=== PATIENT | female | born 1955 | race Caucasian/White ===

== ENCOUNTER 2023-10-17 19:00 | Emergency (ER) | payer BC, OTHER ==
[~2023-10-17] VITALS: Ht 170.2 cm; Wt 53.5 kg
[2023-10-17 19:28] VITALS: BP_SYST 137; PULSE 100; RESP 20; TEMP 98.3; O2SAT 99
[2023-10-17 20:39] LABS: BASOPHILS % (AUTO) 0.2 % (0.0-2.0); EOSINOPHILS # (AUTO) 0.1 K/uL (0.0-0.4); EOSINOPHILS % (AUTO) 0.7 % (0.0-4.0); HEMATOCRIT 43.5 % (36-48); HEMOGLOBIN 14.9 g/dL (12.0-16.0); LYMPHOCYTES # (AUTO) 1.3 K/uL (1.0-5.5); LYMPHOCYTES % (AUTO) 6.4 % (20.5-51.5); MEAN CORPUSCULAR HEMOGLOBIN 33 pg (27-31); MEAN CORPUSCULAR HGB CONC 34 % (32-36); MEAN CORPUSCULAR VOLUME 97 fL (79.0-98.0); MONOCYTES # (AUTO) 1.1 K/uL (0.0-1.0); MONOCYTES % (AUTO) 5.4 % (1.7-9.3); NEUTROPHILS # (AUTO) 17.1 K/uL (1.8-7.7); NEUTROPHILS % (AUTO) 87.3 % (40.0-70.0); PLATELET COUNT (AUTO) 276 K/uL (130-430); RED CELL DISTRIBUTION WIDTH 13.2 % (9.0-15.0); WHITE BLOOD COUNT (AUTO) 19.6 K/uL (4.8-10.8)
[2023-10-17 20:51] LABS: CALCIUM 9.3 mg/dL (8.4-11.0); CREATININE 0.56 mg/dL (0.55-1.30); POTASSIUM 3.6 mmol/L (3.5-5.1)
[2023-10-17 20:55] LABS: ALBUMIN 3.9 g/dL (3.4-4.8); TOTAL BILIRUBIN 0.4 mg/dL (0.0-1.0); TOTAL PROTEIN, SERUM 7.4 g/dL (6.4-8.3)
[2023-10-17 21:23] LABS: BILIRUBIN,URINE NEGATIVE (NEGATIVE); BLOOD, URINE NEGATIVE (NEGATIVE); CLARITY/URINE CLEAR (CLEAR); COLOR,URINE YELLOW (YELLOW); GLUCOSE,URINE NEGATIVE (NEGATIVE); KETONES,URINE NEGATIVE (NEGATIVE); LEUKOCYTE ESTERASE ,URINE NEGATIVE (NEGATIVE); NITRITE, URINE NEGATIVE (NEGATIVE); PH,URINE 5.5 (5.0-8.0); PROTEIN URINE NEGATIVE (NEGATIVE); UROBILINOGEN,URINE 0.2 (0.2-1.0)
[2023-10-17] MEDS: ONDANSETRON HCL 4 MG/2 ML VIAL IVP ONE (22:04)
[2023-10-17] MEDS: MORPHINE 4 MG INJ. 4 MG/ML VIAL IVP ONE (22:04)
[2023-10-18] MEDS ORDERED: ACET-73 PO (00:21)
[2023-10-18] MEDS ORDERED: DOCU-144 PO (00:21)
[2023-10-18 00:43] VITALS: BP_SYST 133; PULSE 80; RESP 18; TEMP 97.8; O2SAT 97
[2023-10-18] MEDS ORDERED: HYDR-3917 PO (15:09)
[2023-10-18] MEDS ORDERED: ONDA-8 TL (15:09)
== END 2023-10-18 00:43 | disposition home or self-care (01) ==
LOC: SED 19:00
DX: N83.202 Unspecified ovarian cyst, left side (principal); N13.30 Unspecified hydronephrosis; D72.829 Elevated white blood cell count, unspecified; R10.32 Left lower quadrant pain; Z79.899 Other long term (current) drug therapy
CPT/HCPCS: 99285; 74177; 96374; 96375; 80053; 81001; 83690; 85025; 36415; 81003; J2405; J2270; Q9967

== ENCOUNTER 2023-10-18 11:20 | Emergency (ER) | payer BC, OTHER ==
[~2023-10-18] VITALS: Ht 170.2 cm; Wt 53.5 kg
[2023-10-18 11:20] VITALS: BP_SYST 131; PULSE 113; RESP 19; TEMP 98.1; O2SAT 98
[~2023-10-18 11:20] MED LIST: ACET-73 PO; DOCU-144 PO
[2023-10-18 12:27] LABS: BASOPHILS % (AUTO) 0.1 % (0.0-2.0); EOSINOPHILS % (AUTO) 0.1 % (0.0-4.0); HEMATOCRIT 43.2 % (36-48); LYMPHOCYTES # (AUTO) 0.7 K/uL (1.0-5.5); LYMPHOCYTES % (AUTO) 3.9 % (20.5-51.5); MEAN CORPUSCULAR HEMOGLOBIN 33 pg (27-31); MEAN CORPUSCULAR HGB CONC 35 % (32-36); MEAN CORPUSCULAR VOLUME 96 fL (79.0-98.0); MONOCYTES # (AUTO) 0.8 K/uL (0.0-1.0); MONOCYTES % (AUTO) 4.5 % (1.7-9.3); NEUTROPHILS # (AUTO) 15.9 K/uL (1.8-7.7); NEUTROPHILS % (AUTO) 91.4 % (40.0-70.0); PLATELET COUNT (AUTO) 275 K/uL (130-430); RED BLOOD CELL COUNT(AUTO) 4.49 MIL/uL (4.2-6.2); RED CELL DISTRIBUTION WIDTH 13.3 % (9.0-15.0); WHITE BLOOD COUNT (AUTO) 17.4 K/uL (4.8-10.8)
[2023-10-18 12:36] LABS: CALCIUM 9.1 mg/dL (8.4-11.0); CREATININE 0.62 mg/dL (0.55-1.30); POTASSIUM 4.2 mmol/L (3.5-5.1)
[2023-10-18 12:40] LABS: INR 0.9 (0.8-1.2); PROTHROMBIN TIME 9.7 SECS (9.5-12.5)
[2023-10-18 12:41] LABS: ALBUMIN 3.9 g/dL (3.4-4.8); BILIRUBIN,DIRECT 0.2 mg/dL (0.0-0.3); TOTAL PROTEIN, SERUM 7.6 g/dL (6.4-8.3)
[2023-10-18] MEDS: ONDANSETRON 4 MG ODT TAB PO ONE (14:44)
[2023-10-18] MEDS: HYDROcodone/ACETAMIN 5-325 MG TAB (NORCO/ VICODIN) PO ONE (14:45)
[2023-10-18] MEDS ORDERED: ONDA-8 TL (15:09)
[2023-10-18] MEDS ORDERED: HYDR-3917 PO (15:09)
[2023-10-18 15:28] VITALS: BP_SYST 131; PULSE 113; RESP 19; TEMP 98.1; O2SAT 98
== END 2023-10-18 15:28 | disposition home or self-care (01) ==
LOC: SED 11:20
DX: N83.209 Unspecified ovarian cyst, unspecified side (principal); R10.30 Lower abdominal pain, unspecified; Z79.899 Other long term (current) drug therapy
CPT/HCPCS: 99284; 76856; 80076; 80048; 83690; 85025; 85610; 85730; 36415; Q0162